=== PATIENT | female | born 1940 | race Caucasian/White ===

== ENCOUNTER 2018-01-26 10:34 | Emergency (ER) | payer OTHER ==
[~2018-01-26] VITALS: Ht 154.9 cm; Wt 90.9 kg
[~2018-01-26 10:34] MED LIST: ASPIRIN325 MG PO; AVALIDE 300/1 TABLET PO; CARBIDOPA-LEVO1 EAC8 PO; CIPROFLOXACIN500 M1 PO; COUMADIN1 MG PO; FERROUS SULFAT325 MG PO; HYDROCHLOROTH12.5 M3 PO; IRBESARTAN-HCT1 EAC1 PO; LIBRAX, CLI1 CAPSULE PO; METFORMIN HCL500 MG PO; METHOCARBAMOL500 MG PO; OMEGA 3 PO; OMEGA 3-6-9 CO1 EACH PO; OMEPRAZOLE40 M1 PO; OXYCODONE HCL5 MG PO; PRAVASTATIN SOD20 MG PO; ROXICODONE5 MG PO; SINEMET 25-1001 EACH PO; TYLENOL EXTRA500 MG PO; VITAMIN B-12500 MC2 PO; VITAMIN B-6100 MG PO; VITAMIN B12-FO1 EACH PO; VITAMIN D32000 UNI1 PO; VITAMIN D32000 UNIT PO; XALATAN2.5 ML BOTH EYES
[2018-01-26] MEDS ORDERED: NAPROSYN500 MG PO (14:11)
[2018-01-26] MEDS ORDERED: VALIUM5 MG PO (14:11)
[2018-01-26 14:47] VITALS: BP 129/68
== END 2018-01-26 14:49 | disposition home or self-care (01) ==
LOC: EME 10:34
DX: M54.2 Cervicalgia (principal); M62.838 Other muscle spasm; E11.40 Type 2 diabetes mellitus with diabetic neuropathy, unspecified; M19.90 Unspecified osteoarthritis, unspecified site; Z88.1 Allergy status to other antibiotic agents; Z88.2 Allergy status to sulfonamides
CPT/HCPCS: 72125; 99281; 99284

== ENCOUNTER 2018-02-21 09:23 | Emergency (ER) | payer OTHER ==
[~2018-02-21] VITALS: Ht 154.9 cm; Wt 94.0 kg
[~2018-02-21 09:23] MED LIST changes: +NAPROSYN500 MG PO; +VALIUM5 MG PO
[2018-02-21 11:50] VITALS: BP 130/55
== END 2018-02-21 11:51 | disposition home or self-care (01) ==
LOC: EME 09:23
DX: M19.041 Primary osteoarthritis, right hand (principal); M19.031 Primary osteoarthritis, right wrist; M85.841 Other specified disorders of bone density and structure, right hand; Z88.1 Allergy status to other antibiotic agents
CPT/HCPCS: 73110; 73130; 99281; 99284